=== PATIENT | male | born 1995 ===

== ENCOUNTER 2017-10-14 14:15 | Emergency (ER) | payer BC ==
[2017-10-14 15:13] VITALS: BP 125/68
--- NOTE | 2017-10-14 16:35 | UC ---
Demetria Delarosa Gabriel, scribed for Mao Morejon MD on 10/14/17 at 1458 . Eye Complaint HPI - HPI Summary HPI Summary: This patient is a 22 year old M presenting to [facility] [place] a chief complaint swollen right eye of a since 10-12-17. The patient rates the pain 3/10 in severity. Patient reports his eye is itching, it is uncomfortable blinking, eye crust, and slightly blurry vision in right eye. - History of Current Complaint Stated Complaint: EYE IRRITATION Time Seen by Provider: 10/14/17 14:50 Hx Obtained From: Patient Onset/Duration: Lasting Days, Still Present Timing: Constant Severity Initially: Mild Severity Currently: Moderate Pain Intensity: 4 Pain Scale Used: 0-10 Numeric Location of Injury: Conjunctiva Associated Signs And Symptoms: Positive: Vision Impairment Right, Swelling - Allergies/Home Medications Allergies/Adverse Reactions: Allergies Allergy/AdvReac Type Severity Reaction Status Date / Time No Known Allergies Allergy Verified 10/14/17 15:13 PMH/Surg Hx/FS Hx/Imm Hx Other History Of: Negative For: HIV, Hepatitis B, Hepatitis C - Surgical History Surgical History: Yes Surgery Procedure, Year, and Place: ear surgery - Family History Known Family History: Negative: Cardiac Disease, Hypertension, Diabetes, Renal Disease, Respiratory Disease, Seizure Disorder - Social History Occupation: Student Lives: Dormitory/Roommates Alcohol Use: None Substance Use Type: None Smoking Status (MU): Light Every Day Tobacco Smoker Review of Systems Eyes: Blurred Vision, Other - crust, eye is itching, it is uncomfortable blinking, eye crust Neurological: Negative - slurred speech All Other Systems Reviewed And Are Negative: Yes Physical Exam Triage Information Reviewed: Yes Vital Signs: Initial Vital Signs Temp 97.6 F 10/14/17 15:07 Pulse 85 10/14/17 15:07 Resp 16 10/14/17 15:07 BP 125/68 10/14/17 15:07 Pulse Ox 97 10/14/17 15:07 Vital Signs Reviewed: Yes - Additional Comments VITAL SIGNS: Reviewed. GENERAL: Patient is a well developed and nourished M who is lying comfortable in the stretcher. Patient is not in any acute respiratory distress. HEAD AND FACE: Normocephalic EYES: PERRLA, EOMI x 2.right conjunctival injection. EARS: Hearing grossly intact. MOUTH: Oropharynx within normal limits. NECK: Supple, trachea is midline, no adenopathy, no JVD, no carotid bruit. CHEST: Symmetric, no tenderness at palpation LUNGS: Clear to auscultation bilaterally. No wheezing or crackles. CVS: Regular rate and rhythm, S1 and S2 present, no murmurs or gallops appreciated. ABDOMEN: Soft, non-tender. Bowel sounds are normal. No abdominal abnormal pulsations. EXTREMITIES: Full ROM in all major joints, no edema, no cyanosis or clubbing. NEURO: Alert and oriented x 3. No acute neurological deficits. Speech is normal and follows commands. SKIN: Dry and warm Eye Complaint Course/Dx - Course Course Of Treatment: Patient diagnosed with conjunctivitis. Pt was instructed to return to the urgent care or go to ER immediately if any of the symptoms return or worsens. Plan of care was discussed with the patient and pt understands and agrees. All questions were answered to patient satisfaction. There were no further complaints or concerns. The patient was diagnosed with conjunctivitis. Medications were given. The patient was found to have increase BP in UC. The patient will follow up with PCP for better control of BP. - Differential Dx/Diagnosis Provider Diagnoses: Conjunctivitis, Elevated blood pressure without history of hypertension Discharge - Discharge Plan Condition: Stable Disposition: HOME Prescriptions: Ciprofloxacin 0.3% OPTH.FREDIS* [Cipro 0.3% Opth*] 2 drop RIGHT EYE Q4H #1 btl Patient Education Materials: Conjunctivitis (ED) [place] [facility] [place] [facility] [place]] No Primary Care Phys,NOPCP [Primary Care Provider] - Additional Instructions: Take medications as instructed Increase your fluid intake Return to the UC if symptoms worsen Your blood pressure was elevated during todays visit; please follow up with your primary care provider within a week for further evaluation. The documentation as recorded by the Demetria ram Gabriel accurately reflects the service I personally performed and the decisions made by , Mao Morejon MD.
== END 2017-10-14 15:25 | disposition home or self-care (01) ==
LOC: UCEAST 14:15
DX: H10.9 Unspecified conjunctivitis (principal); R03.0 Elevated blood-pressure reading, without diagnosis of hypertension; Z72.0 Tobacco use
CPT/HCPCS: 99202; G0463

== ENCOUNTER 2018-01-10 20:23 | Emergency (ER) | payer BC ==
[2018-01-10 20:38] VITALS: BP 124/73
[2018-01-10] MEDS ORDERED: Cephalexin CAP* 500 MG PO ONE (21:08)
--- NOTE | 2018-01-10 21:31 | UC ---
Skin Complaint HPI - HPI Summary HPI Summary: patient is an otherwise healthy 22-year-old male presenting to the with chief complaint of overgrowth of skin to the left side of the nare 10 days. He states he had a nasal piercing approximate 4 weeks ago to the area and endorses a "bump" over the area. Denies any redness or erythema. Denies itching. Painful to the touch, but otherwise denies any other symptoms. He has been using normal saline and BC powder without relief. - History of Current Complaint Chief Complaint: UCSkin Time Seen by Provider: 01/10/18 20:48 Stated Complaint: SOFT TISSUE COMPLAINT Hx Obtained From: Patient Onset/Duration: Sudden Onset Skin Exposure Onset/Duration: Hours Ago Timing: Constant Onset Severity: Mild Current Severity: Mild Pain Intensity: 0 Pain Scale Used: 0-10 Numeric Location: Face Aggravating Factor(s): Nothing Alleviating Factor(s): Nothing Associated Signs & Symptoms: Positive: Negative Related History: Trauma - Allergy/Home Medications Allergies/Adverse Reactions: Allergies Allergy/AdvReac Type Severity Reaction Status Date / Time No Known Allergies Allergy Verified 01/10/18 20:38 Home Medications: Home Medications Amphetamine MIXED SALT TAB* [Adderall TAB*] 20 mg PO DAILY 01/10/18 [History Confirmed 01/10/18] FLUoxetine CAP* [Prozac CAP*] 1 tab PO DAILY 01/10/18 [History Confirmed ] buPROPion TAB* [Wellbutrin TAB*] 150 mg PO DAILY 01/10/18 [History Confirmed ] Review of Systems Constitutional: Negative Skin: Other - keloid ENT: Negative Respiratory: Negative Cardiovascular: Negative Motor: Negative Neurological: Negative Is Patient Immunocompromised?: No All Other Systems Reviewed And Are Negative: Yes PMH/Surg Hx/FS Hx/Imm Hx Previously Healthy: Yes Other History Of: Negative For: HIV, Hepatitis B, Hepatitis C - Surgical History Surgical History: Yes Surgery Procedure, Year, and Place: ear surgery - Family History Known Family History: Negative: Cardiac Disease, Hypertension, Diabetes, Renal Disease, Respiratory Disease, Seizure Disorder - Social History Occupation: Employed Part-time Lives: With Family Alcohol Use: None Substance Use Type: None Smoking Status (MU): Light Every Day Tobacco Smoker Physical Exam Triage Information Reviewed: Yes Appearance: Well-Appearing, Well-Nourished Vital Signs: Initial Vital Signs Temp 98.7 F 01/10/18 20:34 Pulse 98 01/10/18 20:34 Resp 15 01/10/18 20:34 BP 124/73 01/10/18 20:34 Pulse Ox 100 01/10/18 20:34 Vital Signs Reviewed: Yes Eye Exam: Normal Neck exam: Normal Neck: Positive: Supple, No Lymphadenopathy Respiratory Exam: Normal Respiratory: Positive: Chest non-tender Cardiovascular Exam: Normal Cardiovascular: Positive: RRR Musculoskeletal Exam: Normal Musculoskeletal: Positive: Strength Intact Psychological: Positive: Normal Response To Family Skin: Positive: Other - keloid Course/Dx - Course Course Of Treatment: Patient is evaluated for a small overgrowth of skin to the left side of the knee or over a recent piercing. It appears to be a granuloma/ keloid formed to the skin from the piercing. I've advised tea tree oil several times per day and a follow-up to dermatology as this may need to be removed. Upon request he is given a short course of antibiotics for any bacterial pathology, however there is no drainage, erythema or pus pocket. - Diagnoses Provider Diagnoses: Keloid Discharge - Sign-Out/Discharge Documenting (check all that apply): Discharge/Admit/Transfer - Discharge Plan Condition: Stable Disposition: HOME Prescriptions: Cephalexin CAP* [Keflex CAP*] 500 mg PO QID #20 cap MDD 4 Referrals: No Primary Care Phys,NOPCP [Primary Care Provider] - Additional Instructions: Keloid/Granuloma: Any injury on the skin can result in an abnormal growth of skin tissues in that area that resemble a bump and is often harmless. These bumps are called keloids and are very common after nose piercing. Please get appt with radio announcer. Tea tree oil - apply several times per day - Billing Disposition and Condition Condition: STABLE Disposition: HOME Images Head: 1 - small granuloma/keloid formation
== END 2018-01-10 21:15 | disposition home or self-care (01) ==
LOC: UCEAST 20:23
DX: L91.0 Hypertrophic scar (principal); F17.200 Nicotine dependence, unspecified, uncomplicated
CPT/HCPCS: 99212; A9270-GY; G0463